=== PATIENT | male | born 1970 | race American Indian/Alaskan Native ===

== ENCOUNTER 2018-10-13 08:30 | Day surgery (SDC) | payer OTHER ==
[~2018-10-13 08:30] MED LIST: Buffered Lidocaine 0.9% SYRIN* 5 ML/SYR SYRINGE INTRADERM ONE; Dexamethasone IV* 4 MG/ML 1 ML (4 MG) IV SLOW PU ONE; Famotidine IV* 10 MG/ML 2 ML (20 mg) IV ONE; Lactated Ringers 1000 ML Bag* 1,000 ML IV SCH
[2018-10-13] MEDS ORDERED: ceFAZolin 2 GM PREMIX in ORs 2 GM/50 ML BAG IVPB ONE (09:02)
[2018-10-13] MEDS ORDERED: Famotidine IV* 10 MG/ML 2 ML (20 mg) ONE (09:12)
[2018-10-13] MEDS ORDERED: Dexamethasone IV* 4 MG/ML 1 ML (4 MG) ONE (09:12)
[2018-10-13] MEDS ORDERED: fentaNYL* 50 MCG/ML 5 ML VIAL (250 MCG VIAL) ONE (09:45)
[2018-10-13] MEDS ORDERED: Midazolam* 1 MG/ML 5 ML VIAL (5 MG) ONE (09:46)
[2018-10-13] MEDS ORDERED: Propofol* 10 MG/ML 20 ML BTL ONE (09:46)
[2018-10-13] MEDS ORDERED: Ondansetron INJ* 2 MG/ML VIAL ONE (09:46)
[2018-10-13] MEDS ORDERED: Lidocaine 1% INJ* 10 MG/ML 30 ML SDV ONE (09:53)
[2018-10-13] MEDS ORDERED: Gentamicin ADULT (*) 40 MG/ML VIAL (2 ML VIAL = 80 MG) ONE (09:53)
[2018-10-13] MEDS ORDERED: Bacitracin IV* 50,000 UNITS INJ ONE (09:54)
[2018-10-13] MEDS ORDERED: Vancomycin(*) 1,000 MG VIAL ONE (09:54)
[2018-10-13] MEDS ORDERED: Bupivacaine 0.25% SDV PF* 10 ML VIAL INJ ONE (09:54)
[2018-10-13] MEDS ORDERED: ceFAZolin 1 GM VIAL(*) ONE (09:55)
[2018-10-13] MEDS ORDERED: Naloxone* 0.4 MG/ML 1 ML VIAL IV PRN (11:53)
[2018-10-13 12:46] VITALS: BP 107/77
--- NOTE | 2018-10-13 17:00 | OP ---
DATE OF OPERATION: 10/13/18 - [facility] DATE OF : 72 SURGEON: Niko Davis MD. ANESTHESIOLOGIST: Dr. Jackson. ANESTHESIA: Local MAC. PRE-OP DIAGNOSIS: Postlaminectomy syndrome. POST-OP DIAGNOSIS: Postlaminectomy syndrome. OPERATIVE PROCEDURE: Replacement of [employer] IPG for his dorsal column stimulator. ESTIMATED BLOOD LOSS: Minimal. FLUIDS: Per anesthesia. BRIEF PREOPERATIVE NOTE: The patient is a 48-year-old male who has been using a dorsal column stimulator to treat the symptoms of postlaminectomy syndrome. The patient underwent the procedure in [address] Abrams and has paddle lead in place. The IPG has and is no longer functioning, and the patient has requested a replacement battery. I had a chance to discuss the procedure with the patient, the risks, the benefits, and alternatives to therapy. We discussed the risks of bleeding, infection, damaging the paddle lead wires which then would require him to have to see a neurosurgeon for replacement. After going over these in detail with the patient, informed consent was obtained. DESCRIPTION OF PROCEDURE: The patient was brought to the operating suite, placed prone on the operating table. His back and right buttock area were prepped and draped in usual sterile fashion. Using local anesthetic of 1% lidocaine mixed with 0.25% bupivacaine, the area of the old scar over the IPG was anesthetized with the local anesthetic mixture. Then, using a 15 skin blade , incision was made and meticulous dissection was done down to the IPG so as to avoid cutting any of the leads. The old IPG was removed and the pocket irrigated copiously with antibiotic irrigant. I then needed to open up the capsule at the superior aspect of the pocket to fit the new IPG, so electrocautery was used to dissect the capsule and open the superior aspect to creat more room for the IPG. Hemostasis was obtained with electrocautery. The pocket was then irrigated again copiously with antibiotic irrigant. The new IPG was connected to the leads. Continuity was confirmed and the screws were tightened until audible clicks were heard. The IPG was placed back in the pocket and the wound was closed with deep interrupted 2-0 Polysorb sutures followed by a running 4-0 subcuticular Polysorb closure. DermaFlex and Steri- Strips were then applied with a 4x4 and Tegaderm dressing. The patient was brought to the recovery area in stable condition. He will follow up with us in the pain clinic as scheduled for a followup visit. [id number]/[facility] #: [id number] [place]
== END 2018-10-13 12:59 | disposition home or self-care (01) ==
LOC: OR 08:30
PROVIDERS: ATTEND Anesthesiology Pain Medicine
DX: T85.890A Other specified complication of nervous system prosthetic devices, implants and grafts, initial encounter (principal); M96.1 Postlaminectomy syndrome, not elsewhere classified; Y83.8 Other surgical procedures as the cause of abnormal reaction of the patient, or of later complication, without mention of misadventure at the time of the procedure; I10 Essential (primary) hypertension; Z87.891 Personal history of nicotine dependence; Z79.891 Long term (current) use of opiate analgesic
CPT/HCPCS: 88300; A9270-GY; C1787; C1820; J0690; J1100; J1580; J2250; J2405; J2704; J3010; J3370; J3490